=== PATIENT | female | born 1955 | race Two or more races ===

== ENCOUNTER 2018-01-14 11:00 | Day surgery (SDC) | payer MEDICAID ==
[~2018-01-14 11:00] MED LIST: Midazolam 1 MG/ML 2 ML SDV ONE; Propofol 200 MG/20 ML SDV ONE; fentaNYL 100 MCG/2 ML SDV ONE
--- NOTE | 2018-01-14 11:20 | PCM.PREANE ---
Preanesthetic Assessment - Anesthesia/Transfusion/Family Hx Anesthesia History: Prior Anesthesia Without Reaction Family History of Anesthesia Reaction: No Transfusion History: No Prior Transfusion(s) Intubation History: Unknown - Review of Systems General: No Symptoms Pulmonary: No Symptoms Cardiovascular: No Symptoms Gastrointestinal: Abdominal Pain Neurological: No Symptoms Other: Reports: None - Physical Assessment Height: 1.52 m Weight: 74.389 kg ASA Class: 2 Mental Status: Alert & Oriented x3 Airway Class: Mallampati = 2 Dentition: Reports: Normal Dentition Thyro-Mental Finger Breadths: 3 Mouth Opening Finger Breadths: 3 ROM/Head Extension: Full Lungs: Clear to Auscultation, Normal Respiratory Effort Cardiovascular: Regular Rate, Regular Rhythm - Allergies Allergies/Adverse Reactions: Allergies Allergy/AdvReac Type Severity Reaction Status Date / Time No Known Allergies Allergy Verified 01/12/18 12:53 - Blood Blood Available: No - Anesthesia Plan Pre-Op Medication Ordered: None - Acknowledgements Anesthesia Type Planned: MAC Pt an Appropriate Candidate for the Planned Anesthesia: Yes Alternatives and Risks of Anesthesia Discussed w Pt/Guardian: Yes Pt/Guardian Understands and Agrees with Anesthesia Plan: Yes PreAnesthesia Questionnaire HEENT History: Reports: Other (See Below) Other HEENT History: uses reading glasses Gastrointestinal History: Reports: Other (See Below) Other Gastrointestinal History: Abdominoplasty MEDICAL CLAIMS ANALYST History: Reports: Endocrine/Metabolic History: Reports: Obesity/BMI 30+ - Past Surgical History GI Surgical History: Reports: Other (See Below) (abdominoplasty) Female Surgical History: Reports: Section (x3) - SUBSTANCE USE Smoking Status *Q: Never Smoker Recreational Drug Use History: No - HOME MEDS Home Medications: Home Meds . [No Known Home Meds] 01/12/18 [History] - CURRENT (IN HOUSE) MEDS Current Meds: Current Medications Lactated Ringer's (Ringers, Lactated) 1,000 mls @ 125 mls/hr IV ASDIRECTED ANTONIO Discontinued Medications Fentanyl (Sublimaze) Confirm Administered Dose 100 mcg .ROUTE .STK-MED ONE Stop: 01/14/18 07:37 Midazolam HCl (Versed 1 Mg/Ml) Confirm Administered Dose 2 mg .ROUTE .STK-MED ONE Stop: 01/14/18 07:37 Propofol (Diprivan 20 Ml) Confirm Administered Dose 200 mg .ROUTE .STK-MED ONE Stop: 01/14/18 07:37
[2018-01-14] MEDS ORDERED: Lactated Ringers 1,000 ML IV SCH (11:30)
--- NOTE | 2018-01-14 12:30 | PCM.OPNOTE ---
- General Post-Op/Procedure Note Date of Surgery/Procedure: 01/14/18 Operative Procedure(s): egd w bx and colonoscopy Findings: see dict [id number] Pre Op Diagnosis: abd pain and gerd Post-Op Diagnosis: same Anesthesia Technique: Moderate Sedation Primary Surgeon: Silverio Melendez Complications: None Condition: Good Free Text/Narrative:: Intake & Output 01/13/18 01/14/18 01/14/18 22:59 06:59 14:59 Intake Total 900 Balance 900
--- NOTE | 2018-01-14 13:13 | PCM48HPAN ---
Post Anesthesia Note - EVALUATION WITHIN 48HRS OF ANESTHETIC Vital Signs in Normal Range: Yes Patient Participated in Evaluation: Yes Respiratory Function Stable: Yes Airway Patent: Yes Cardiovascular Function Stable: Yes Hydration Status Stable: Yes Pain Control Satisfactory: Yes Nausea and Vomiting Control Satisfactory: Yes Mental Status Recovered: Yes Resp Rate: 15 - COMMENTS/OBSERVATIONS Free Text/Narrative:: no anesthesia problems
--- NOTE | 2018-01-14 14:42 | OR ---
SURGEON: Silverio Melendez MD DATE OF PROCEDURE: 01/14/2018 PREOPERATIVE DIAGNOSES: Abdominal pain and acid reflux. POSTOPERATIVE DIAGNOSES: Esophagogastroduodenoscopy diagnosis: Gastroesophageal reflux disease. Colonoscopy diagnosis: Diverticulosis. PROCEDURES PERFORMED: EGD with biopsy and colonoscopy. PROCEDURE IN DETAIL: EGD: The patient was taken to the endoscopy room, and with the HIDE PULLER, Diprivan was administered. A well-lubricated EGD scope was gently inserted through the oropharynx, down the esophagus, passing through the gastroesophageal junction, into the stomach. The mucosa was examined upon the passage. Any etiology will be noted. Once in the stomach, we continued to advance to the distal antrum, passed through the pylorus into the second portion of the duodenum. Again, the mucosa was examined for any abnormality and etiology. The scope was then retrieved back to the stomach and then retroflexed to look at the fundus of the stomach. If a biopsy was indicated, we will biopsy the antrum, body, and gastroesophageal junction. The air will be sucked out while the scope is retrieved to reduce the patient's discomfort. The patient tolerated the procedure well. There were no intraoperative complications. Dr. Melendez was present through the whole procedure. Prior to surgery, a time-out had been called, the patient identified, procedure identified and antibiotic administered. Colonoscopy procedure: The patient was taken to the endoscopy room. A time out was called, patient identified, and procedure identified. Diprivan was then administrated. Patient went from awake to sleep, hearing doctor talking or door closing is normal. Perineum inspection and digital examination were then performed. A well- lubricated colonoscope was gently inserted through the rectum, advanced past the rectosigmoid junction, the descending colon, splenic flexure, transverse colon, hepatic flexure, ascending colon, arrived to the cecum. Cecum was identified as dictated in the finding. Then the scope was carefully withdrawn while attention was paid to the mucosal surface for any abnormality. Air will be sucked out during the scope withdrawal. At the rectum, retroflexed to examine any rectal diseases, fistula or hemorrhoids. Patient tolerated procedure well. There were no intraoperative complications, and Dr. Melendez was present throughout the whole procedure. FINDINGS: EGD findin. The patient is easily sedated with HIDE PULLER and Diprivan. The patient is soundly snoring. 2. The patient's oropharynx and proximal esophagus are free of disease. There is a lot of white stuff, looked like a food particle and could be thrush moderate salmon-colored change consistent with significant GERD. Distal stomach rugae is flattened consistent with over acid production. GE junction is inflamed, and duodenum was grossly normal in appearance. Retroflexed look at the fundus of stomach, there is no hiatal hernia. Biopsy done at antrum, GE junction, and body and sucked the gas while scope coming out. Colonoscopy findings: The patient is easily sedated with HIDE PULLER and Diprivan. The patient is soundly snoring and colonoscopy bowel prep is left to be desirable with a large amount of opaque liquid stool and no semi-formed stool. This is a compromised study, requiring constant irrigation and the patient's colon rather redundant in the sigmoid, requiring manuver to see the cecum. Cecum indicated by ileocecal fold, and one-to-one indentation, light emittance, and appendiceal orifice not observed. Mucosa examined upon scope pulling out with constant irrigation. The patient has significant diverticulosis on the left colon. No signs or symptoms of diverticulitis. No polyp, mass, growth, inflammation, stricture, ulceration, or AV malformation. The patient have internal hemorrhoids and external hemorrhoids. The patient would benefit from repeat colonoscopy in 10 years from today or if clinically indicated otherwise. WILVER / REFUGIO /[id number] MARY
== END 2018-01-14 13:15 | disposition home or self-care (01) ==
LOC: MW.SDS 11:00
PROVIDERS: ATTEND Surgery
DX: R10.9 Unspecified abdominal pain (principal); K21.9 Gastro-esophageal reflux disease without esophagitis; K57.30 Diverticulosis of large intestine without perforation or abscess without bleeding; K64.4 Residual hemorrhoidal skin tags; K64.8 Other hemorrhoids; E66.9 Obesity, unspecified; Z68.32 Body mass index [BMI] 32.0-32.9, adult
CPT/HCPCS: 43239; 45378; J2250; J3010; J7120; J2704